=== PATIENT | female | born 1945 | race Caucasian/White ===

== ENCOUNTER 2017-04-01 06:15 | Day surgery (SDC) | payer MEDICARE, OTHER ==
[~2017-04-01 06:15] MED LIST: *CPAP; ALENDRONATE SOD70 M2 PO; ASPIRIN81 M1 PO; CINNAMON PO; CLA1000 MG PO; CO Q-10100 MG PO; COREG6.25 M1 PO; CORGARD40 MG PO; COZAAR50 M1 PO; FEMARA2.5 M1 PO; FLAX SEED OIL1000 M1 PO; HAWTHORN BERRI565 MG PO; LECITHIN PO; LESCOL XL80 MG PO; LIPITOR40 M1 PO; LORTAB 7.5/5001 EA PO; MULTI VITAMIN1 EAC2 PO; NEPHROCAPS SOFTG1 M1 PO; NORVASC5 M2 PO; PRADAXA150 M1 PO; SYNTHROID75 MC1 PO; VITAMIN C1000 MG PO; VITAMIN C500 M1 PO; VITAMIN D31000 UNI3 PO; VITAMIN E400 UNI4 PO; [UNRECOGNIZED DRUG - OTHER] PO; [UNRECOGNIZED DRUG - OTHER] PO
== END 2017-04-01 13:45 ==
LOC: BREPO 06:15 → SHSB 07:05 → ORW 10:34 → PACU 11:44 → SHSB 12:30
PROC: 0HBT0ZZ Excision of Right Breast, Open Approach (ICD-10-PCS; principal; 2017-04-01)
DX: D05.11 Intraductal carcinoma in situ of right breast (principal); I25.10 Atherosclerotic heart disease of native coronary artery without angina pectoris; I10 Essential (primary) hypertension; E03.9 Hypothyroidism, unspecified; J44.9 Chronic obstructive pulmonary disease, unspecified; G47.30 Sleep apnea, unspecified; Z79.82 Long term (current) use of aspirin; Z79.83 Long term (current) use of bisphosphonates; Z79.899 Other long term (current) drug therapy; Z91.048 Other nonmedicinal substance allergy status; Z86.73 Personal history of transient ischemic attack (TIA), and cerebral infarction without residual deficits; Z85.79 Personal history of other malignant neoplasms of lymphoid, hematopoietic and related tissues; Z90.89 Acquired absence of other organs; Z98.890 Other specified postprocedural states
CPT/HCPCS: A4648; J0690; J2250